=== PATIENT | female | born 1980 | race African-American/Black ===

== ENCOUNTER 2017-10-10 11:50 | Emergency (ER) | payer MEDICAID ==
[~2017-10-10] VITALS: Ht 165.1 cm; Wt 77.1 kg
[2017-10-10 11:59] VITALS: BP 110/77
== END 2017-10-10 14:22 | disposition home or self-care (01) ==
LOC: ER 11:50
DX: S39.012A Strain of muscle, fascia and tendon of lower back, initial encounter (principal); X50.1XXA Overexertion from prolonged static or awkward postures, initial encounter; Y93.89 Activity, other specified; Y92.89 Other specified places as the place of occurrence of the external cause; Y99.8 Other external cause status
CPT/HCPCS: 81025

== ENCOUNTER 2020-08-24 13:19 | Emergency (ER) | payer MEDICAID ==
[~2020-08-24] VITALS: Ht 165.1 cm; Wt 81.6 kg
[2020-08-24 16:45] VITALS: BP 112/72
[2020-08-24] MEDS ORDERED: IBUPROFEN 800 MG TAB PO ONE (16:45)
== END 2020-08-24 16:57 | disposition home or self-care (01) ==
LOC: ER 13:19
DX: S83.8X2A Sprain of other specified parts of left knee, initial encounter (principal); V09.9XXA Pedestrian injured in unspecified transport accident, initial encounter; Y93.89 Activity, other specified; Y92.89 Other specified places as the place of occurrence of the external cause; Y99.8 Other external cause status
CPT/HCPCS: 73562

== ENCOUNTER 2021-05-20 13:11 | Emergency (ER) | payer MEDICAID, OTHER ==
[~2021-05-20] VITALS: Ht 167.6 cm; Wt 81.6 kg
[2021-05-20 14:29] VITALS: BP 115/56
[2021-05-20] MEDS ORDERED: IBUPROFEN 600 MG TAB PO ONE (15:30)
== END 2021-05-20 15:50 | disposition home or self-care (01) ==
LOC: ER 13:11
DX: S01.81XA Laceration without foreign body of other part of head, initial encounter (principal); W22.8XXA Striking against or struck by other objects, initial encounter; Y93.89 Activity, other specified; Y92.89 Other specified places as the place of occurrence of the external cause; Y99.8 Other external cause status
CPT/HCPCS: 12011

== ENCOUNTER 2025-04-28 08:55 | Emergency (ER) | payer BC, MEDICAID, OTHER ==
[~2025-04-28] VITALS: Ht 167.6 cm; Wt 100.0 kg
--- NOTE | 2025-04-28 10:21 | ED.PDOC ---
HPI Comments 44 y/o F, with no prior cardiac history presents to the ED for CC of chest pain. Patient states, she has been experiencing intermittent substernal chest pain with associated shortness of breath onset, Saturday (04/25/25). Patient reports, increased stress at work which could be cause of symptoms. Patient denies cough, fever, chills, palpitations, nausea, or vomiting. No other symptoms or modifying factors present at this time. Chief Complaint: Chest Pain Time Seen by MD: 10:05 Primary Care Provider: MINISTERIO Kidd Notes: Nurses Notes, Medications, Allergies Allergies: Coded Allergies: NO KNOWN ALLERGIES (Unverified , 08/24/20) Information Source: Patient Mode of Arrival: Ambulatory Severity: Moderate Timing: Days Duration: Since onset Prehospital treatment: None Location: Substernal Radiation: No Radiation Onset: At Rest Cardiac Risk Factors: None PE Risk Factors: None History of: None Modifying Factors: Nothing Associated Signs and Symptoms: SOB Past Medical History PAST MEDICAL HISTORY: Denies Surgical History: Denies all surgeries 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 Family History Family History: Reviewed,noncontributory to illness Social History Smoker: Non-Smoker Alcohol: Denies ETOH Use Drugs: Denies Drug Use Lives In: Home Constitutional: denies: chills, diaphoresis, fatigue, fever, malaise, sweats, weakness, others EENTM: denies: blurred vision, double vision, ear bleeding, ear discharge, ear drainage, ear pain, ear ringing, eye pain, eye redness, hearing loss, mouth pain, mouth swelling, nasal discharge, nose bleeding, nose congestion, nose pain, photophobia, tearing, throat pain, throat swelling, voice changes, others Respiratory: reports: shortness of breath; denies: cough, hemoptysis, orthopnea, SOB at rest, SOB with excertion, stridor, wheezing, others Cardiovascular: reports: chest pain; denies: dizzy spells, diaphoresis, Dyspnea on exertion, edema, irregular heart beat, left arm pain, lightheadedness, palpitations, PND, syncope, others Gastrointestinal: denies: abdomen distended, abdominal pain, blood streaked bowels, constipated, diarrhea, dysphagia, difficulty swallowing, hematemesis, melena, nausea, poor appetite, poor fluid intake, rectal bleeding, rectal pain, vomiting, others Genitourinary: denies: abnormal vagina bleeding, burning, dyspareunia, dysuria, flank pain, frequency, hematuria, incontinence, pain, , vagina discharge, urgency, others Neurological: denies: dizziness, fainting, headache, left sided numbness, left sided weakness, numbness, paresthesia, pre-existing deficit, right sided numbness, right sided weakness, seizure, speech problems, tingling, tremors, weakness, others Musculoskeletal: denies: back pain, gout, joint pain, joint swelling, muscle pain, muscle stiffness, neck pain, others Integumetry: denies: bruises, change in color, change in hair/nails, dryness, laceration, lesions, lumps, rash, wounds, others Allergic/Immunocompromised: denies: Difficulty Healing, Frequent Infections, Hives, Itching, others Hematologic/Lymphatic: denies: anemia, blood clots, easy bleeding, easy bruising, swollen glands, others Endocrine: denies: excessive hunger, excessive sweating, excessive thirst, excessive urination, flushing, intolerance to cold, intolerance to heat, unexplained weight gain, unexplained weight loss, others Psychiatric: denies: anxiety, bipolar disorder, depression, hopeless, panic disorder, schizophrenia, sleepless, suicidal, others Physical Exam General Appearance: Mild Distress, Other (Under large amount of stress) HEENT: Normal ENT Inspection, PERRL/EOMI Neck: Full Range of Motion, Non-Tender, Normal, Normal Inspection Respiratory: Chest Non-Tender, Lungs Clear, No Accessory Muscle Use, No Respiratory Distress, Normal Breath Sounds, Other (Hyperventilation carpopedal spasms) Cardiovascular: No Edema, No JVD, No Murmur, No Gallop, Normal Peripheral Pulses, Regular Rate/Rhythm Breast Exam: Deferred Gastrointestinal: No Organomegaly, Non Tender, No Pulsatile Mass, Normal Bowel Sounds, Soft Genitalia: Deferred Pelvic: Deferred Rectal: Deferred Extremities: No calf tenderness, Normal capillary refill, Normal inspection, N ormal range of motion, Non-tender, No pedal edema Neurologic: Alert, junior mechanical engineer II-XII nml as Tested, No Motor Deficits, Normal Affect, Normal Mood, No Sensory Deficits Cerebellar Function: Normal Reflexes: Normal Skin: Dry, Normal Color, Warm Peripheral Pulses: 1+ carotid (R), 1+ carotid (L) Lymphatic: No Adenopathy EKG EKG : Pulse Rate (adult): 95 [place]: Normal Cardiac Rhythm: NSR Was a procedure done? Was a procedure done?: No CP Differential Dx Differential Diagnosis: Anxiety / Panic Attack, Pulmonary Embolus Differential Diagnosis: Angina, Chest Wall Pain, Costochondritis, Esophageal reflux/spasm, Gastritis X-Ray, Labs, Meds, VS Vital Signs Date Time Temp Pulse Resp B/P (MAP) Pulse Ox O2 Delivery O2 Flow Rate FiO2 04/28/25 10:59 95 04/28/25 10:34 86 22 99 Room Air 04/28/25 10:34 98.3 86 22 146/89 (108) 99 98.3 04/28/25 10:02 88 04/28/25 09:15 97.6 97 20 134/78 (96) 100 97.6 04/28/25 09:01 95 Lab Test 04/28/25 10:10 04/28/25 09:13 Range/Units Troponin I High Sensitivity < 3 L < 3 L </=34 ng/L White Blood Count 7.6 4.4-10.8 10^3/uL Red Blood Count 4.76 4.0-5.20 10^6/uL Hemoglobin 16.0 12.2-16.2 g/dL Hematocrit 45.8 36.0-46.0 % Mean Corpuscular Volume 96.3 80.0-100.0 fL Mean Corpuscular Hemoglobin 33.7 H 28.0-32.0 pg Mean Corpuscular Hemoglobin Concent 34.9 32.0-36.0 g/dL Red Cell Distribution Width 13.0 11.8-14.3 % Platelet Count 398 140-450 10^3/uL Mean Platelet Volume 8.5 6.9-10.8 fL Neutrophils (%) (Auto) 68.5 37.0-80.0 % Lymphocytes (%) (Auto) 23.7 10.0-50.0 % Monocytes (%) (Auto) 6.8 0.0-12.0 % Eosinophils (%) (Auto) 0.5 0.0-7.0 % Basophils (%) (Auto) 0.5 0.0-2.0 % Neutrophils # (Auto) 5.2 1.6-8.6 10 ^3/uL Lymphocytes # (Auto) 1.8 0.4-5.4 10 ^3/uL Monocytes # (Auto) 0.5 0-1.3 10 ^3/uL Eosinophils # (Auto) 0 0-0.8 10 ^3/uL Basophils # (Auto) 0 0-0.2 10 ^3/uL Nucleated Red Blood Cells 0.1 % D-Dimer, Quantitative 0.19 0.0-0.49 mg/L FEU Sodium Level 141 136-145 mmol/L Potassium Level 3.9 3.5-5.1 mmol/L Chloride Level 106 98-107 mmol/L Carbon Dioxide Level 23 20-31 mmol/L Anion Gap 12 5-15 Blood Urea Nitrogen 10 9-23 mg/dL Creatinine 1.17 H 0.550-1.02 mg/dL Glomerular Filtration Rate Calc 60 >90 mL/min BUN/Creatinine Ratio 8.5 L 10.0-20.0 Serum Glucose 90 74-106 mg/dL Calcium Level 10.5 H 8.7-10.4 mg/dL Magnesium Level 1.9 1.6-2.6 mg/dL Total Bilirubin 1.0 0.2-1.0 mg/dL Aspartate Amino Transferase (AST) 24 13-40 U/L Alanine Aminotransferase (ALT) 23 7-40 U/L Alkaline Phosphatase 73 46-116 U/L Total Protein 7.3 5.7-8.2 g/dL Albumin 4.8 3.2-4.8 g/dL Current Medications Medications (Trade) Dose Ordered Sig/Mary Route Start Time Stop Time Status Last Admin Aspirin 162 mg ONCE ONCE PO 04/28/25 10:30 04/28/25 10:31 DC 04/28/25 10:37 Sodium Chloride 1,000 ml @ 150 mls/hr Q6H40M ONCE IV 04/28/25 10:30 04/28/25 17:09 04/28/25 10:37 Alprazolam (Xanax Tablet) 1 mg ONCE ONCE PO 04/28/25 10:30 04/28/25 10:31 DC 04/28/25 10:[address] [address] Ph: [phone] DIAGNOSTIC IMAGING Diagnostic Imaging Report : [id number] Signed PATIENT: JULIO SAMAYOA ACCT: [id number] UNIT: [id number] : 1980 LOC: ER ROOM / BED: / AGE / SEX: 44 / F ADM STATUS: REG ER SERVICE 1025 ORDERING PHYSICIAN: HILDA HORNE MD PROCEDURE(s): CXR2 - CHEST TWO VIEWS ROUTINE REASON: cp ORDER NUMBER(s): [id number], ACCESSION NUMBER(s): [id number] CHEST RADIOGRAPH Indication: cp Technique: Frontal and lateral view of the chest was obtained Comparison: None FINDINGS: Lines and Tubes: None Lungs: Clear Pleura: No effusion. No pneumothorax. Cardiomediastinal contours: Unremarkable Bones: Unremarkable IMPRESSION: No evidence of acute disease. ATED BY: EMETERIO GUTIERREZ MD DICTATED DATE/TIME: 04/28/25 105 SIGNED BY: EMETERIO GUTIERREZ MD SIGNED DATE/TIME: 04/28/25 105 CC: X-Ray, Labs, Meds, VS Comment 44-year-old female presented to the emergency department with a hyperventilating stressed complaining of chest pain and shortness of breath EKG shows normal sinus rhythm at 95 Troponin three and three CBC normal D-dimer 0.19 CMP negative Magnesium 1.9 Patient has been observed and medicated she will be discharged to follow up with her PCP Time of 1ST Reevaluation: 10:35 Reevaluation 1ST: Unchanged Time of 2ND Reevaluation: 11:26 Reevaluation 2ND: Improved Consultation: PCP Patient Education/Counseling: Diagnosis, Treatment, Prognosis, Need For Follow Up Family Education/Counseling: Diagnosis, Treatment, Prognosis, Need For Follow Up, No Family Present SEPSIS Sepsis Screen Date sepsis recognized/suspect: Apr 28, 2025 Time Sepsis recognized/suspect: 908 Recent Procedure: No On Antibiotic Therapy: No Respiratory Rate >20: No Heart Rate >90: Yes Temp<36 C (96.8 F) or >38.3 C: No SBP <90 or MAP <65 mmHG: No New Acute Mental Status Change: No Is the patient on CPAP, BIPAP,: No Physician Orders Electrocardigram (04/28/25 08:58) Electrocardigram (04/28/25 09:58) Electrocardigram (04/28/25 11:58) Troponin-I Hs (04/28/25 11:58) [place] Iv (04/28/25 10:25) Chest Two Views Routine (04/28/25 10:25) Sodium Chloride 0.9% (04/28/25 10:30) Urinalysis (04/28/25 10:25) Vital Signs Date Time Temp Pulse Resp B/P (MAP) Pulse Ox O2 Delivery O2 Flow Rate FiO2 04/28/25 10:59 95 04/28/25 10:34 86 22 99 Room Air 04/28/25 10:34 98.3 86 22 146/89 (108) 99 98.3 04/28/25 10:02 88 04/28/25 09:15 97.6 97 20 134/78 (96) 100 97.6 04/28/25 09:01 95 Laboratory Tests Test 04/28/25 09:13 White Blood Count 7.6 10^3/uL (4.4-10.8) Medications Medications Dose Ordered Sig/Mary Route Start Time Stop Time Status Last Admin Dose Admin Alprazolam 1 mg ONCE ONCE PO 04/28/25 10:30 04/28/25 10:31 DC 04/28/25 10:37 Aspirin 162 mg ONCE ONCE PO 04/28/25 10:30 04/28/25 10:31 DC 04/28/25 10:37 Sodium Chloride 1,000 ml @ 150 mls/hr Q6H40M ONCE IV 04/28/25 10:30 04/28/25 17:09 04/28/25 10:37 Departure 1 Departure Time of Disposition: 11:26 Impression: Primary Impression: Musculoskeletal chest pain Additional Impressions: Hyperventilation syndrome Carpopedal spasm Situational anxiety Disposition: 01 HOME / SELF CARE / HOMELESS Condition: Fair Additional Instructions: Follow up with your PCP and possibly psychiatrist to help you relieve your stress e-Prescriptions Alprazolam (Xanax) 0.25 Mg Tb 1 TAB PO BID for 10 Days, #20 TAB Prov: HIDLA HORNE MD 04/28/25 Discharged With: Self Critical Care Note Critical Care Time?: No Stability Stability form required: No Heart Score Heart Score: Heart Score Response (Comments) Value History N/A 0 EKG Normal 0 Age <45 0 Risk Factors No known risk factors 0 Troponin Normal limit 0 Total 0 I personally scribed for HILDA HORNE MD ([email or web address]) on 04/28/25 at 10:21. Electronically submitted by Apurva Castano ([email or web address]). I personally scribed for HILDA HORNE MD ([email or web address]) on 04/28/25 at 11:06. Electronically submitted by Apurva Castano ([email or web address]). HILDA HORNE MD Apr 28, 2025 10:21
[2025-04-28 10:34] VITALS: BP 146/89; RESP 22; TEMP 98.3; O2SAT 99
[2025-04-28] MEDS: SODIUM CHLORIDE 0.9% 1,000 ML IV ONE (10:37)
[2025-04-28] MEDS: ALPRAZolam 0.5 MG TAB PO ONE (10:37)
[2025-04-28 10:43] LABS: Hemoglobin 16.0 g/dL (12.2-16.2)
[2025-04-28 10:44] LABS: Hematocrit 45.8 % (36.0-46.0); Mean Corpuscular Hemoglobin 33.7 pg (28.0-32.0); Mean Corpuscular Volume 96.3 fL (80.0-100.0); Nucleated Red Blood Cells % 0.1 %
[2025-04-28 10:52] LABS: Alanine Aminotransferase 23 U/L (7-40); Albumin 4.8 g/dL (3.2-4.8); Alkaline Phosphatase 73 U/L (46-116); Anion Gap 12 (5-15); BUN/Creatinine Ratio 8.5 (10.0-20.0); Blood Urea Nitrogen 10 mg/dL (9-23); Carbon Dioxide 23 mmol/L (20-31); Chloride 106 mmol/L (98-107); Glucose 90 mg/dL (74-106); Magnesium 1.9 mg/dL (1.6-2.6); Potassium 3.9 mmol/L (3.5-5.1); Sodium 141 mmol/L (136-145); Total Protein 7.3 g/dL (5.7-8.2)
[2025-04-28 10:53] LABS: Bilirubin, Total 1.0 mg/dL (0.2-1.0); Calcium 10.5 mg/dL (8.7-10.4)
--- NOTE | 2025-04-28 10:55 | DVH ---
CHEST RADIOGRAPH Indication: cp Technique: Frontal and lateral view of the chest was obtained Comparison: None FINDINGS: Lines and Tubes: None Lungs: Clear Pleura: No effusion. No pneumothorax. Cardiomediastinal contours: Unremarkable Bones: Unremarkable IMPRESSION: No evidence of acute disease.
[2025-04-28 10:59] VITALS: PULSE 95
[2025-04-28] MEDS ORDERED: ALPR0.25 PO (11:29)
[2025-04-28 12:13] LABS: Urine Protein, UAD Negative (Negative)
--- NOTE | 2025-04-28 19:26 | ECG ---
[facility] Test Date: 2025-04-28 Test Time: 10:02:08 Pat Name: JULIO SAMAYOA Department: ER Room: Gender: F Pin Drafter: : 1980 Requested By: EMERGENCY EMERGENCY Order Number: [id number] Reading MD: Michael Su Measurements Intervals [place] Rate: 88 P: 67 TN: 144 QRS: 41 QRSD: 84 T: 2 QT: 368 QTc: 446 Interpretive Statements Sinus rhythm Borderline T abnormalities, anterior leads Electronically Signed On 04-30-2025 10:22:12 PDT by Michael Su Please click the below link to view image of tracing.
--- NOTE | 2025-04-28 19:26 | ECG ---
[facility] Test Date: 2025-04-28 Test Time: 09:01:59 Pat Name: JULIO SAMAYOA Department: ER Room: Gender: F Fabrication Supervisor: : 1980 Requested By: EMERGENCY EMERGENCY Order Number: [id number] Reading MD: Michael Su Measurements Intervals [place] Rate: 95 P: 65 MS: 137 QRS: 46 QRSD: 91 T: -4 QT: 352 QTc: 443 Interpretive Statements Sinus rhythm Borderline T abnormalities, anterior leads Electronically Signed On 04-30-2025 10:21:27 PDT by Michael Su Please click the below link to view image of tracing.
== END 2025-04-28 11:52 | disposition home or self-care (01) ==
LOC: ER 08:55
DX: F45.8 Other somatoform disorders (principal); R29.0 Tetany; F41.9 Anxiety disorder, unspecified
CPT/HCPCS: 36415; 71046; 80053; 81001; 83735; 84484; 85025; 85379; 93005; 96360; 99285; J7030